=== PATIENT | female | born 1955 | race Caucasian/White ===

== ENCOUNTER → 2016-10-11 | Outpatient (CLI) | payer BC ==
[~2016-10-11] MED LIST: AZEL0.056 NAE; CALC8.5C PO; CETI10TA84 PO; CYCL0.052 OP; FE B28CA PO; FLUO20CA20 PO; HYDR-5688 PO; MELO7.5T5 PO; TRAM-10 PO
== END | disposition home or self-care (01) ==
LOC: C.PAPS 15:27
PROVIDERS: ATTEND Obstetrics & Gynecology
DX: Z01.419 Encounter for gynecological examination (general) (routine) without abnormal findings (principal)

== ENCOUNTER → 2017-01-10 | Outpatient (CLI) | payer BC ==
[2017-01-10 10:17] LABS: ALT/SGPT 20 U/L (12-78); BLOOD UREA NITROGEN 23 mg/dl (7-18); BUN/CREATININE RATIO 29.2 (10-20); CALCIUM 8.7 mg/dl (8.5-10.1); CARBON DIOXIDE 29 mmol/L (21-32); CHLORIDE 105 mmol/L (98-107); CHOLESTEROL 236 mg/dl (0-200); GLUCOSE 91 mg/dl (70-99); POTASSIUM 4.2 mmol/L (3.5-5.1); SODIUM 142 mmol/L (136-145)
[2017-01-10 10:21] LABS: ALB/GLOB RATIO 1.2 (0.9-2); ALKALINE PHOSPHATASE 45 U/L (45-117); AST/SGOT 10 U/L (15-37); CHOLESTEROL/HDL RATIO 2.5; FERRITIN 77.1 ng/ml (8.0-388.0); HDL CHOLESTEROL 96 mg/dl; LDL CHOLESTEROL CALCULATED 124 mg/dl; TRIGLYCERIDES 81 mg/dl (0-150); VERY LOW DENSITY LIPOPROT CALC 16 mg/dl
== END | disposition home or self-care (01) ==
LOC: C.LAB 07:18
PROVIDERS: ATTEND Nurse Practitioner Family
DX: M19.90 Unspecified osteoarthritis, unspecified site (principal); D50.9 Iron deficiency anemia, unspecified; E78.5 Hyperlipidemia, unspecified

== ENCOUNTER 2017-01-14 21:50 | Emergency (ER) | payer BC ==
[~2017-01-14] VITALS: Ht 167.6 cm; Wt 57.0 kg
[2017-01-14 21:53] VITALS: TEMP 37; Ht 167.6 cm; Wt 57.0 kg
[2017-01-14] MEDS ORDERED: AZEL0.056 NAE (22:47)
[2017-01-14] MEDS ORDERED: FLUO20CA20 PO (22:49)
[2017-01-14] MEDS ORDERED: MELO7.5T5 PO (22:49)
[2017-01-14] MEDS ORDERED: CYCL0.052 OP (22:50)
[2017-01-14] MEDS ORDERED: TRAM-10 PO (22:52)
[2017-01-14] MEDS ORDERED: CETI10TA84 PO (22:53)
[2017-01-14] MEDS ORDERED: CALC8.5C PO (22:54)
[2017-01-14] MEDS ORDERED: FE B28CA PO (22:55)
--- NOTE | 2017-01-14 23:05 | DIAGNOSTIC IMAGING REPORT ---
RIGHT FOOT MIN 3 VIEWS ROUTINE, RIGHT ANKLE MIN 3 VIEWS ROUTINE CLINICAL HISTORY: injury to right foot Right. Right foot and ankle pain. COMPARISON STUDY: None. FINDINGS: Mildly displaced oblique fracture within the distal shaft of the right fifth metatarsal. This demonstrates 3 mm of medial displacement. Soft tissue swelling within the lateral aspect of the forefoot. No dislocation. The Lisfranc joint appears intact. Mild right lateral ankle soft tissue swelling. No fracture or dislocation within the right ankle. IMPRESSION: 1. Mildly displaced fracture within the distal right fifth metatarsal. 2. No fracture or dislocation within the right ankle. Electronically signed by: Ulices Jo M.D. 01/14/2017 11:03 PM Dictated Date/Time: 01/14/2017 11:01 PM
[2017-01-14] MEDS ORDERED: HYDR-5688 PO (23:20)
[2017-01-14] MEDS ORDERED: NORCO 5/325MG HOME PACK PO ONE (23:30)
[2017-01-14 23:38] VITALS: BP 124/68; PULSE 69; O2SAT 97
--- NOTE | 2017-01-15 03:29 | EMERGENCY ROOM VISIT NOTE ---
ED Visit Note First contact with patient: 22:06 CHIEF COMPLAINT: Right ankle pain. HISTORY OF PRESENT ILLNESS: Tameka Santiago is a 61-year old white male who ambulates into the ED accompanied by her complaining of right lateral ankle pain and pain over the distal portions of the third through fifth metatarsals. Patient reports approximately an hour before she arrived in the emergency department she was sitting on a chair. She reports she attempted to stand up and realized her leg was numb and sleepy. When she put the full weight of her body on this area she just fell over. She does report that she struck her head over a carpeted step but had no loss of consciousness and since the injury she had no signs of head injury. Since the injury she reports she is having pain over the right lateral malleolus and lateral distal foot. She rates her overall discomfort 6/10. Her pain is nonradiating. Her pain worsens with palpation, ambulation and all movements of the ankle. She has not identified any alleviating factors related to the pain. She reports she has not taken any specific pain for her discomfort tonight but for her arthritis she uses tramadol and had taken at approximately 2-3 hours before her injury. She denies any current dizziness, lightheadedness, headaches, visual changes, hearing changes, difficulty speaking, difficulty swallowing, difficulty ambulating/coordinating body movements, neck pain, chest pain, shortness of breath, abdominal pain, nausea, vomiting, foot weakness/numbness/tingling. REVIEW OF SYSTEMS: All body systems reviewed with the patient and found to be negative unless noted above otherwise. PAST MEDICAL HISTORY: CURRENT MEDICATIONS: Medications Dose Route/Sig Max Daily Dose Days Date Category Dose Instructions Gentle Iron (Fe Bisglycinate Chelate-Vit C-) 1 Cap Cap 25 Mg PO BID 01/14/17 Reported Viactiv (Calcium W/ Vitamins D & K) 1 Chw Chw 1 Tab PO DAILY 01/14/17 Reported Zyrtec (Cetirizine HCl) 10 Mg Tab 10 Mg PO DAILY 01/14/17 Reported Ultram (Tramadol HCl) 50 Mg Tab 50-100 Mg PO Q6H PRN 01/14/17 Reported Restasis (Cyclosporine (Ophth)) 0.05 % Emu 1 Drops OP BID 01/14/17 Reported Mobic (Meloxicam) 7.5 Mg Tab 7.5 Mg PO DAILY 01/14/17 Reported Fluoxetine (Fluoxetine Hcl (Pmdd)) 20 Mg Cap 20 Mg PO DAILY 01/14/17 Reported Azelastine HCl 0.15 % Spr 1 Horicon FABIENNE QPM 01/14/17 Reported ALLERGIES TO MEDICATIONS: Patient denies. SOCIAL HISTORY: Patient is not currently employed; she feels safe in her home environment; she denies tobacco and alcohol use. PHYSICAL EXAM: Vital Signs: Date Time Temp Pulse Resp B/P Pulse Ox O2 Delivery O2 Flow Rate FiO2 01/14/17 23:38 69 16 124/68 97 01/14/17 21:53 37.0 69 16 116/70 98 Room Air General: 61 year old female in mild/moderate distress due to pain, nontoxic- appearing, afebrile and hemodynamically stable. Neurological: Awake, alert, oriented to person place and time. Answering questions appropriately and following commands. Skin: Warm dry and pink. No soft tissue injuries. Right Lower Extremity: No gross lionel deformities. No shortening or malrotation. No tenderness in the hip or knee. Tenderness over the lateral malleolus and the ligaments structures anterior and posterior to the malleolus with moderate swelling without bony deformity or crepitus. I did not appreciate any laxity of the ligamentous structures but all stress on the ligamentous structures increased her discomfort. There is also moderate tenderness over the distal aspects of the third, fourth and fifth metatarsals with some early ecchymosis in the skin. No palpable bony crepitus or deformity. Full range of motion in plantar flexion, dorsiflexion, inversion and eversion of the ankle and flexion and extension of all toes. Throughout the foot the skin is pink and warm with brisk capillary refill. Able to distinguish light sensations through all dermatomes of the foot. ED COURSE: Patient is assessed as noted above. Right Ankle X-Rays: Was read by myself and the radiologist showing no acute fractures or dislocations. Moderate soft tissue swelling over the lateral malleoli and forefoot. Right Foot X-Rays: Was read by myself and the radiologist and shows a mildly displaced fracture of the distal fifth medical tarsal with mild swelling. Patient is given ice for pain, swelling and comfort; patient was offered pain medication and refused. Patient is placed in a gel splint, postop shoe and is instructed on her walker use. Patient is educated about her condition and instructed on her treatment plan; she verbalizes understanding and agreement with the our plan. CLINICAL IMPRESSION: Right fifth metatarsal fracture. Right ankle sprain. DISPOSITION: Patient is discharged to home in stable condition accompanied by her ; prior to departure she was reassessed and subjectively reported she was feeling better and rated her discomfort 2/10. PLAN: Comfort measures were discussed with the patient; patient was placed on a sliding pain scale involving [place]; she was educated on narcotic precautions. Patient should return ED for worsening/uncontrolled pain, foot weakness/numbness /tingling or any new/concerning symptoms.
== END 2017-01-14 23:35 | disposition home or self-care (01) ==
LOC: C.EDB 21:51 → C.EDD 23:35
DX: S92.351A Displaced fracture of fifth metatarsal bone, right foot, initial encounter for closed fracture (principal); M25.571 Pain in right ankle and joints of right foot; W18.30XA Fall on same level, unspecified, initial encounter; Y92.89 Other specified places as the place of occurrence of the external cause

== ENCOUNTER → 2017-07-14 | Outpatient (CLI) | payer BC ==
[2017-07-14 10:50] LABS: BASO % 1.3 %; BASO ABS # 0.06 K/uL (0-0.2); COMPLETE YES; EOS % 2.1 %; HEMATOCRIT 42.1 % (37-47); IG% 0.2 %; LYMPH % 37.3 %; LYMPH ABS # 1.77 K/uL (1.2-3.4); MEAN CELL VOLUME 90.1 fL (80-100); MEAN CORPUSCULAR HEMOGLOBIN 30.4 pg (25-34); MEAN CORPUSCULAR HGB CONC 33.7 g/dl (32-36); MEAN PLATELET VOLUME 11.7 fL (7.4-10.4); MONO % 5.9 %; NEUT % 53.2 %; PLATELET COUNT 226 K/uL (130-400); RED BLOOD COUNT 4.67 M/uL (4.2-5.4); WHITE BLOOD COUNT 4.75 K/uL (4.8-10.8)
[2017-07-14 11:23] LABS: ALT/SGPT 19 U/L (12-78); BLOOD UREA NITROGEN 23 mg/dl (7-18); BUN/CREATININE RATIO 28.5 (10-20); CALCIUM 8.9 mg/dl (8.5-10.1); CARBON DIOXIDE 28 mmol/L (21-32); CHLORIDE 105 mmol/L (98-107); CHOLESTEROL 242 mg/dl (0-200); CREATININE 0.82 mg/dl (0.60-1.20); GLUCOSE 102 mg/dl (70-99); POTASSIUM 3.9 mmol/L (3.5-5.1); SODIUM 141 mmol/L (136-145); TRIGLYCERIDES 83 mg/dl (0-150); VERY LOW DENSITY LIPOPROT CALC 17 mg/dl
[2017-07-14 11:27] LABS: ALB/GLOB RATIO 1.2 (0.9-2); ALKALINE PHOSPHATASE 48 U/L (45-117); AST/SGOT 14 U/L (15-37); CHOLESTEROL/HDL RATIO 2.4; FERRITIN 117.4 ng/ml (8.0-388.0); HDL CHOLESTEROL 100 mg/dl; LDL CHOLESTEROL CALCULATED 125 mg/dl
== END | disposition home or self-care (01) ==
LOC: C.LABBC 07:58
PROVIDERS: ATTEND Nurse Practitioner Family
DX: M19.90 Unspecified osteoarthritis, unspecified site (principal); F41.0 Panic disorder [episodic paroxysmal anxiety]; E78.5 Hyperlipidemia, unspecified; D50.9 Iron deficiency anemia, unspecified

== ENCOUNTER → 2017-10-01 | Outpatient (CLI) | payer BC ==
[~2017-10-01] MED LIST changes: -HYDR-5688 PO; +PROB1TAB16 PO; +[UNRECOGNIZED DRUG - OTHER] PO
--- NOTE | 2017-10-02 13:45 | MAMMOGRAPHY REPORT ---
BILATERAL DIGITAL SCREENING MAMMOGRAM TOMOSYNTHESIS WITH CAD: 10/01/2017 CLINICAL HISTORY: Routine screening. Patient has no complaints. TECHNIQUE: Breast tomosynthesis in addition to standard 2D mammography was performed. Current study was also evaluated with a Computer Aided Detection (CAD) system. COMPARISON: Comparison is made to exams dated: 09/30/2016 mammogram, 09/19/2015 mammogram, 4 mammogram, 09/14/2013 mammogram, 09/11/2012 mammogram, and 09/16/2011 mammogram - [facility]. BREAST COMPOSITION: The tissue of both breasts is heterogeneously dense, which may obscure small mas ses. FINDINGS: Decreasing nodularity bilaterally. A few scattered benign-appearing round and punctate suzi rocalcifications. No new suspicious mass, architectural distortion or cluster of suspicious microcal cifications is seen. IMPRESSION: ACR BI-RADS CATEGORY 1: NEGATIVE There is no mammographic evidence of malignancy. A 1 year screening mammogram is recommended. The pa tient will receive written notification of the results. Approximately 10% of breast cancers are not detected with mammography. A negative mammographic report should not delay biopsy if a clinically suggestive mass is present. Winnie Rosales M.D. ay/:10/01/2017 15:39:27 In Store Banker: Genevieve Finney, [facility] letter sent: Normal 1/2 BI-RADS Code: ACR BI-RADS Category 1: Negative
== END | disposition home or self-care (01) ==
LOC: C.MAMM 10:22
PROVIDERS: ATTEND Obstetrics & Gynecology
DX: Z12.31 Encounter for screening mammogram for malignant neoplasm of breast (principal)

== ENCOUNTER → 2017-10-17 | Outpatient (CLI) | payer BC ==
[~2017-10-17] MED LIST changes: -PROB1TAB16 PO; -[UNRECOGNIZED DRUG - OTHER] PO
== END | disposition home or self-care (01) ==
LOC: C.PAPS 13:33
PROVIDERS: ATTEND Obstetrics & Gynecology
DX: Z01.419 Encounter for gynecological examination (general) (routine) without abnormal findings (principal); Z78.0 Asymptomatic menopausal state

== ENCOUNTER → 2017-12-24 | Outpatient (CLI) | payer BC | END | disposition home or self-care (01) | LOC: C.LABBC 09:34 | PROVIDERS: ATTEND Nurse Practitioner Family | DX: K52.9 Noninfective gastroenteritis and colitis, unspecified (principal) ==

== ENCOUNTER → 2017-12-26 | Outpatient (CLI) | payer BC ==
[2017-12-26 11:11] LABS: BASO % 1.3 %; BASO ABS # 0.06 K/uL (0-0.2); EOS % 1.7 %; EOS ABS # 0.08 K/uL (0-0.5); HEMATOCRIT 40.6 % (37-47); HEMOGLOBIN 13.8 g/dL (12.0-16.0); IG# 0.01 K/uL (0.00-0.02); LYMPH % 39.8 %; LYMPH ABS # 1.86 K/uL (1.2-3.4); MEAN CELL VOLUME 89.6 fL (80-100); MEAN CORPUSCULAR HEMOGLOBIN 30.5 pg (25-34); MEAN PLATELET VOLUME 11.7 fL (7.4-10.4); MONO % 7.5 %; MONO ABS # 0.35 K/uL (0.11-0.59); NEUT % 49.5 %; NEUT ABS # 2.31 K/uL (1.4-6.5); PLATELET COUNT 248 K/uL (130-400); RED CELL DISTRIBUTION WIDTH CV 12.5 % (11.5-14.5); RED CELL DISTRIBUTION WIDTH SD 40.5 fL (36.4-46.3); WHITE BLOOD COUNT 4.67 K/uL (4.8-10.8)
[2017-12-26 11:23] LABS: BLOOD UREA NITROGEN 23 mg/dl (7-18); GLUCOSE 92 mg/dl (70-99)
[2017-12-26 11:24] LABS: ALBUMIN 3.5 gm/dl (3.4-5.0); ALT/SGPT 20 U/L (12-78); CALCIUM 8.9 mg/dl (8.5-10.1); CARBON DIOXIDE 28 mmol/L (21-32); CHOLESTEROL 227 mg/dl (0-200); POTASSIUM 4.1 mmol/L (3.5-5.1); SODIUM 139 mmol/L (136-145)
[2017-12-26 11:27] LABS: ALKALINE PHOSPHATASE 46 U/L (45-117); AST/SGOT 13 U/L (15-37); LDL CHOLESTEROL CALCULATED 128 mg/dl; LIPASE 129 U/L (73-393); TOTAL PROTEIN 6.7 gm/dl (6.4-8.2)
== END | disposition home or self-care (01) ==
LOC: C.LABBC 08:20
PROVIDERS: ATTEND Nurse Practitioner Family
DX: M19.90 Unspecified osteoarthritis, unspecified site (principal); F41.0 Panic disorder [episodic paroxysmal anxiety]; E78.5 Hyperlipidemia, unspecified; D50.9 Iron deficiency anemia, unspecified; R10.811 Right upper quadrant abdominal tenderness

== ENCOUNTER → 2018-01-06 | Outpatient (CLI) | payer BC ==
--- NOTE | 2018-01-06 09:07 | DIAGNOSTIC IMAGING REPORT ---
GALLBLADDER-ABD LIMITED CLINICAL HISTORY: 62 years-old Female presenting with R10.811 right upper quadrant tenderness. TECHNIQUE: Real-time grayscale and limited color Doppler ultrasound imaging of the abdomen limited to the right upper quadrant was performed. COMPARISON: None. FINDINGS: Pancreas: Visualized portions of the pancreatic head and body normal. Liver: Normal echogenicity and echotexture. The liver measures 17.1 cm in maximal sagittal dimension. No sonographic evidence of hepatic mass. Main portal vein patent with normal directional flow. Dilatation of the intrahepatic IVC and hepatic veins. Biliary: No significant intrahepatic biliary ductal dilatation. Common bile duct measures up to 4-5 mm in diameter. Gallbladder: No evidence of gallstones, gallbladder wall thickening, gallbladder distention, or pericholecystic fluid or inflammatory change. Right kidney: Prominent lobulations likely account for focal cortical hyperechogenicity due to invagination of perinephric fat. No hydronephrosis. Ascites: None. Other: None. IMPRESSION: 1. No cholelithiasis or significant biliary ductal dilatation. Electronically signed by: Tommy Rodarte M.D. 01/06/2018 9:05 AM Dictated Date/Time: 01/06/2018 9:00 AM
== END | disposition home or self-care (01) ==
LOC: C.ULTR 08:36
PROVIDERS: ATTEND Nurse Practitioner Family
DX: R10.811 Right upper quadrant abdominal tenderness (principal)

== ENCOUNTER → 2018-01-22 | Outpatient (CLI) | payer BC ==
--- NOTE | 2018-01-22 12:07 | DIAGNOSTIC IMAGING REPORT ---
NUCLEAR MEDICINE HEPATOBILIARY SCAN HISTORY: K52.9 Chronic [id number] Right upper quadrant abdominal ten COMPARISON: Abdominal ultrasound 01/06/2018. TECHNIQUE: Immediately following the intravenous administration of 5.8 mCi Tc-99m Choletec, dynamic anterior abdominal imaging was performed. FINDINGS: Uniform hepatic tracer accumulation is shown. Prompt intrahepatic biliary excretion is seen. The gallbladder and common bile duct are visualized at 45 minutes. Slight delayed visualization of the small bowel at 75 minutes. IMPRESSION: Slight delayed visualization of the small bowel at 75 minutes. However, this could be a normal variant. No evidence for cystic duct obstruction. Electronically signed by: Ulices Jo M.D. 01/22/2018 12:05 PM Dictated Date/Time: 01/22/2018 12:04 PM
== END | disposition home or self-care (01) ==
LOC: C.NUCL 10:11
PROVIDERS: ATTEND Nurse Practitioner Family
DX: K52.9 Noninfective gastroenteritis and colitis, unspecified (principal); R10.811 Right upper quadrant abdominal tenderness

== ENCOUNTER → 2018-02-03 | Outpatient (CLI) | payer BC | END | disposition home or self-care (01) | LOC: C.LAB 08:35 | PROVIDERS: ATTEND Physician Assistant | DX: K52.9 Noninfective gastroenteritis and colitis, unspecified (principal) ==